=== PATIENT | female | born 1945 | race Caucasian/White ===

== ENCOUNTER → 2024-01-27 | Outpatient (CLI) | payer MEDICARE, OTHER ==
[~2024-01-27] MED LIST: ALDACTONE50 MG PO; CRESTOR5 MG PO; MUCINEX DM 30 M1 TER; ZITHROMAX250 MG PO
== END | disposition home or self-care (01) ==
LOC: RAD 11:18
PROVIDERS: ATTEND Chiropractor
DX: M47.816 Spondylosis without myelopathy or radiculopathy, lumbar region (principal); M48.061 Spinal stenosis, lumbar region without neurogenic claudication; M43.16 Spondylolisthesis, lumbar region